=== PATIENT | female | born 1970 ===

== ENCOUNTER → 2021-09-26 | Outpatient (CLI) | payer BC ==
[~2021-09-26] MED LIST: BAMLANIVIMAB (EUA) 700 MG, ETESEVIMAB (EUA) 1,400 MG in SODIUM CHLORIDE 0.9% 50 ML IVPB NR; SODIUM CHLORIDE 0.9% 50 ML IVPB NR; SODIUM CHLORIDE 0.9% 500 ML 500 ML in EMPTY BAG 1 BAG IV PRN
[2021-09-26 08:45] VITALS: RESP 16
[2021-09-26 09:12] VITALS: BP 134/86; PULSE 80; TEMP 96.7
== END | disposition home or self-care (01) ==
LOC: PROCWHC3 07:51
PROVIDERS: ATTEND Radiology Diagnostic Radiology
DX: U07.1 COVID-19 (principal)
CPT/HCPCS: 96360; J3490; M0245